=== PATIENT | female | born 1970 | race Asian ===

== ENCOUNTER 2017-12-11 14:39 | Emergency (ER) | payer OTHER ==
[2017-12-11 15:28] VITALS: BP 124/72
--- NOTE | 2017-12-11 17:05 | UC ---
Respiratory Complaint HPI - HPI Summary HPI Summary: Patient presents with complaints of 15 day onset cough, sputum production, chest congestion. She states she experiencing coughing fits, almost spasmatic with intermittent episodes of wheezing. She reports one week ago she was having fevers as well. She reports she has been traveling extensively in [place], and [place], for her work, and noticed some repertory symptoms after leaving [facility]. She reports coming home [place] and reports her symptoms have not improve. She denies fever, chills today, chest or abdominal pain, vomiting, diarrhea, rashes, or joint pain. - History of Current Complaint Chief Complaint: UCGeneralIllness Stated Complaint: COUGH Time Seen by Provider: 12/11/17 16:45 Hx Obtained From: Patient Onset/Duration: Gradual Onset, Lasting Weeks Timing: Intermittent Episodes Severity Initially: Moderate Severity Currently: Moderate Pain Intensity: 5 Character: Cough: Productive Aggravating Factors: Deep Breaths, Recumbent Position Alleviating Factors: Upright Position, Spontaneous Resolution Associated Signs And Symptoms: Positive: Wheezing, URI, Nasal Congestion, Sinus Discomfort - Risk Factors Pulmonary Embolism Risk Factors: Negative Cardiac Risk Factors: Negative Pseudomonas Risk Factors: Negative Tuberculosis Risk Factors: Negative - Allergies/Home Medications Allergies/Adverse Reactions: Allergies Allergy/AdvReac Type Severity Reaction Status Date / Time No Known Allergies Allergy Verified 12/11/17 15:28 PMH/Surg Hx/FS Hx/Imm Hx Previously Healthy: Yes - Surgical History Surgical History: None - Family History Known Family History: Positive: None - Social History Occupation: Employed Full-time Lives: Alone Alcohol Use: Occasionally Substance Use Type: None Smoking Status (MU): Never Smoked Tobacco Review of Systems Constitutional: Negative Skin: Negative Eyes: Negative ENT: Sore Throat, Nasal Discharge, Sinus Congestion Respiratory: Cough Cardiovascular: Negative Gastrointestinal: Negative Genitourinary: Negative Motor: Negative Neurovascular: Negative Musculoskeletal: Negative Neurological: Negative Psychological: Negative Is Patient Immunocompromised?: No All Other Systems Reviewed And Are Negative: Yes Physical Exam Triage Information Reviewed: Yes Appearance: Well-Appearing Vital Signs: Initial Vital Signs Temp 98.5 F 12/11/17 15:20 Pulse 65 12/11/17 15:20 Resp 17 12/11/17 15:20 BP 124/72 12/11/17 15:20 Pulse Ox 100 12/11/17 15:20 Vital Signs Reviewed: Yes Eye Exam: Normal ENT: Positive: Pharyngeal erythema, Nasal congestion Neck exam: Normal Neck: Positive: 1 Respiratory: Positive: Rhonchi Cardiovascular Exam: Normal Cardiovascular: Positive: RRR, No Murmur Abdominal Exam: Normal Musculoskeletal Exam: Normal Neurological Exam: Normal Psychological Exam: Normal Skin Exam: Normal UC Diagnostic Evaluation - Laboratory O2 Sat by Pulse Oximetry: 100 Respiratory Course/Dx - Course Course Of Treatment: Patient presents with complaints of 2-3 week onset persisten symtpoms of cough, chest congestion, with intermittent audible wheezing. VSS. Patient has a nontoxic appearance. She presents clincically with acute bronchitis with reactive airway resulting from the bronchitis. She is going to be treated with zpk, prednisone, albuterol and robitussin.codeine cough medication. She understands that she cannot drive any vehicles while taking this medication. She verbalized understanding of and in agreement with the discharge plan. - Differential Dx/Diagnosis Differential Diagnosis/HQI/PQRI: Bronchitis Provider Diagnoses: bronchitis Discharge - Discharge Plan Condition: Stable Disposition: HOME Prescriptions: Albuterol HFA INHALER* [Ventolin HFA Inhaler*] 1 puff INH Q4H PRN #1 mdi PRN Reason: Cough Azithromycin TAB* [Zithromax TAB (Z-SANCHO) 250 mg #6 tabs] 2 tab PO .TODAY, THEN 1 DAILY #1 sancho Guaifenesin-Codeine [Codeine/Guaifenesin 100-10 mg/5Ml] 5 ml PO Q6H PRN #180 ml MDD 4 PRN Reason: Cough predniSONE TAB* [Deltasone TAB*] 20 mg PO BID #10 tab Patient Education Materials: Acute Bronchitis (ED) Referrals: Anabelle Rosa MD [Primary Care Provider] -
== END 2017-12-11 17:00 | disposition home or self-care (01) ==
LOC: UCEAST 14:39
DX: J40 Bronchitis, not specified as acute or chronic (principal)
CPT/HCPCS: 99212; G0463